=== PATIENT | female | born 1980 | race African-American/Black ===

== ENCOUNTER 2020-08-30 15:46 | Outpatient (CLI) | payer OTHER, SELFPAY ==
--- NOTE | ~2020-08-30 | MM_ITS ---
EXAMINATION: MM screening ariel BI w jose HISTORY: Screening TECHNIQUE: Craniocaudal and mediolateral oblique 3-D tomosynthesis images were obtained and synthetic 2-D images were generated. CAD analysis was submitted and interpreted. COMPARISON: No prior mammogram is available for comparison at this institution. BREAST PARENCHYMAL COMPOSITION: There are scattered areas of fibroglandular density. FINDINGS: There is no evidence of suspicious mass, calcification, or architectural distortion to sugg est malignancy in either breast. There has been no suspicious interval change. IMPRESSION: 1. No mammographic evidence of malignancy. 2. Recommend routine screening mammography in one year. BI-RADS Category 1: Negative Reviewed, dictated and finalized at location A. TABLE PICKER
== END 2020-08-30 15:47 | disposition home or self-care (01) ==
LOC: ANHIMG 15:50
PROVIDERS: PCP Physician Assistant; Visit Provider Physician Assistant
DX: Z12.31 Encounter for screening mammogram for malignant neoplasm of breast (principal)
CPT/HCPCS: 77063; 77067

== ENCOUNTER 2022-01-09 10:21 | Outpatient (CLI) | payer OTHER, SELFPAY ==
[2022-01-09 10:51] LABS: Hematocrit 41.5 % (37.0-47.0); Mean Corpuscular HGB Conc 31.3 g/dl (32-36); Mean Corpuscular Hemoglobin 28.6 pg (26-34); Mean Corpuscular Volume 91.4 fl (80-100); Mean Platelet Volume 10.4 fl (7.4-10.4); Platelet Count Result 261 k/mm3 (150-375); Red Blood Count 4.54 M/mm3 (4.2-5.4); Red Cell Distribution Width 12.2 % (11.5-14.5); White Blood Count 3.6 K/mm3 (4.5-10.0)
[2022-01-09 11:08] LABS: Alanine Aminotransferase 15 U/L (4-35); Albumin Level 4.4 g/dL (3.5-5.1); Alkaline Phosphatase 90 U/L (38-126); Anion Gap 4 mmol/L (8-16); Aspartate Amino Transferase 27 U/L (14-36); Bilirubin,Total 0.4 mg/dL (0.2-1.3); Blood Urea Nitrogen 16 mg/dL (7-17); Calcium 9.1 mg/dL (8.4-10.2); Carbon Dioxide 28 mmol/L (22-30); Chloride 110 mmol/L (98-107); Cholesterol 259 mg/dL (0-200); Estimated Glomerular Filt Rate > 60; Glucose 91 mg/dL (65-110); HDL Direct 50 mg/dL; Potassium 4.1 mmol/L (3.4-5.0); Sodium 142 mmol/L (137-145); Triglycerides 144 mg/dL (<150)
[2022-01-09 11:19] LABS: LDL Cholesterol Direct 111 mg/dL
[2022-01-09 11:39] LABS: Thyroid Stimulating Hormone 0.273 uIU/mL (0.465-4.680)
[2022-01-09 12:14] LABS: Folic Acid 17.8 ng/mL (2.76->20)
== END 2022-01-09 10:22 | disposition home or self-care (01) ==
LOC: ANHLAB 10:22
PROVIDERS: PCP Physician Assistant; Visit Provider Physician Assistant
DX: Z00.00 Encounter for general adult medical examination without abnormal findings (principal)
CPT/HCPCS: 36415; 80053; 80061; 82607; 82746; 84443; 85027

== ENCOUNTER 2022-04-10 11:37 | Outpatient (CLI) | payer OTHER, SELFPAY ==
--- NOTE | ~2022-04-10 | XR_ITS ---
EXAM: XR finger 1st LT min 2V, XR hand LT min 3V DATE: 04/10/2022 11:57 (accession [id number]), 04/10/2022 11:56 (accession [id number]) HISTORY: INJURY PAIN AT [facility] . COMPARISON: None available. FINDINGS: Normal mineralization. No fracture or dislocation. No lytic or blastic lesion. Mild degene rative changes in the fingers. No erosion or periosteal change. Soft tissues within normal limits. IMPRESSION: No acute osseous finding in the left thumb or left handr. Reviewed, dictated and finalized at location K. IMPRESSION: No acute osseous finding in the left thumb or left handr.
== END 2022-04-10 11:38 | disposition home or self-care (01) ==
LOC: ANHIMG 11:39
PROVIDERS: PCP Physician Assistant; Visit Provider Physician Assistant
DX: M79.645 Pain in left finger(s) (principal); M79.642 Pain in left hand
CPT/HCPCS: 73130; 73140

== ENCOUNTER 2022-12-09 13:24 | Outpatient (CLI) | payer OTHER, SELFPAY ==
--- NOTE | ~2022-12-09 | MR_ITS ---
MRI of the lumbar spine Clinical History: Radiculopathy Technique: Axial T2-weighted images, and sagittal T1-weighted, T2-weighted, and T2 fat-sat images wer e acquired. Findings: There is no fracture or subluxation of the lumbar spine. Vertebral bodies maintain normal h eight and alignment. There are reactive marrow signal changes about the L4-L5 disc space due to under lying degenerative disc disease. At L1-L2, L2-L3, and L3-L4, there is no disc bulge or herniation. There are mild facet joint degenera tive changes at these levels. No spinal canal stenosis or neural foraminal narrowing at these levels. At L4-L5, there is advanced degenerative disc narrowing with diffuse disc bulge and mild facet arthro nicola. There is right lateral recess stenosis with severe right neural foraminal narrowing. There is mild left neural foraminal narrowing. At L5-S1, there is no disc bulge or herniation. No spinal canal stenosis or definite neural foraminal narrowing. Paravertebral soft tissues are unremarkable. Impression: Moderate to advanced degenerative spondylitic changes at L4-L5, with right lateral recess stenosis an d severe right neural foraminal narrowing. Additional minimal degenerative changes, as above. Reviewed, dictated and finalized at location . Impression: Moderate to advanced degenerative spondylitic changes at L4-L5, with right late ral recess stenosis and severe right neural foraminal narrowing. Additional minimal degenerative changes, as above.
== END 2022-12-09 13:25 | disposition home or self-care (01) ==
PROVIDERS: PCP Physician Assistant; Visit Provider Physical Medicine & Rehabilitation
DX: M47.26 Other spondylosis with radiculopathy, lumbar region (principal)
CPT/HCPCS: 72148

== ENCOUNTER 2023-05-20 15:12 | Outpatient (CLI) | payer OTHER, SELFPAY ==
--- NOTE | ~2023-05-20 | XR_ITS ---
XR chest 2V DATE: 05/20/2023 15:38 INDICATION: Cough TECHNIQUE: PA and lateral views COMPARISON: None FINDINGS: Mild cardiomegaly. No hilar or mediastinal enlargement. No pulmonary infiltrate or consolid ation, pleural effusion or pulmonary vascular congestion or pneumothorax. Included skeletal structures are unremarkable other than degenerative spurring of the thoracic spine. IMPRESSION: Mild cardiomegaly Reviewed, dictated and finalized at location L. IMPRESSION: Mild cardiomegaly
== END 2023-05-20 15:13 | disposition home or self-care (01) ==
PROVIDERS: PCP Physician Assistant; Visit Provider Physician Assistant
DX: R05.8 Other specified cough (principal); I51.7 Cardiomegaly
CPT/HCPCS: 71046

== ENCOUNTER 2024-03-02 12:19 | Outpatient (CLI) | payer OTHER, SELFPAY ==
--- NOTE | ~2024-03-02 | XR_ITS ---
XR sacroiliac joints min 3V Ordering provider: Carmela Castillo MD History: . Sacroiliitis,LT WORSE, RADIATES INTO LEGS . Comparison: None. FINDINGS: BONES: No acute fracture or dislocation. JOINTS: The bilateral sacroiliac joint spaces appear well maintained. No bony fusion of the sacroilia c joints or bony erosions. SOFT TISSUES: Unremarkable. Degenerative changes of the spine with attempt of lumbarization of S1 with pseudoarthrosis on the rig ht side. Bilateral hip osteoarthritic change. IMPRESSION: NO ACUTE OSSEOUS ABNORMALITY. NORMAL SACROILIAC JOINTS. Reviewed, dictated and finalized at location A.
== END 2024-03-02 12:20 | disposition home or self-care (01) ==
PROVIDERS: PCP Physician Assistant; Visit Provider Physical Medicine & Rehabilitation Pain Medicine
DX: M46.1 Sacroiliitis, not elsewhere classified (principal)
CPT/HCPCS: 72202

== ENCOUNTER 2024-06-02 08:08 | Outpatient (CLI) | payer OTHER, SELFPAY ==
[2024-06-02 08:51] LABS: Basophils Percent Auto 0.5 % (0.2-1.2); Eosinophils Absolute Auto 0.1 K/mm3 (0-0.3); Eosinophils Percent Auto 2.1 % (0-4.4); Hematocrit 41.3 % (37.0-47.0); Hemoglobin 12.8 g/dL (12.0-15.0); Immature Granulocyte Absolute 0.01 K/mm3 (0.00-0.031); Immature Granulocyte Percent A 0.3 % (0-0.5); Lymphocytes Absolute Auto 1.92 K/mm3 (0.9-3.2); Lymphocytes Percent Auto 50.1 % (18.3-44.2); Mean Corpuscular Volume 90.4 fl (80-100); Mean Platelet Volume 9.8 fl (7.4-10.4); Monocytes Absolute Auto 0.3 K/mm3 (0.1-0.6); Monocytes Percent Auto 8.1 % (2.6-8.5); Neutrophils Absolute Auto 1.5 K/mm3 (1.3-6.7); Neutrophils Percent Auto 38.9 % (45.5-73.1); Platelet Count Result 274 k/mm3 (150-375); Red Blood Count 4.57 M/mm3 (4.2-5.4); Red Cell Distribution Width 12.8 % (11.5-14.5); White Blood Count 3.8 K/mm3 (4.5-10.0)
[2024-06-02 09:44] LABS: HIV 1/2 Ab P24 Ag Result Negative (Negative)
[2024-06-02 10:18] LABS: Chlamydia trachomatis NOT DETECTED (NOT DETECTE); Neisseria gonorrhoeae PCR NOT DETECTED (NOT DETECTE)
[2024-06-02 11:09] LABS: Hepatitis C Virus Antibody Negative (Negative)
[2024-06-02 18:14] LABS: Rapid Plasma Reagin Non-Reactive (NonReactive)
== END 2024-06-02 08:09 | disposition home or self-care (01) ==
LOC: ANHLAB 08:11
PROVIDERS: PCP Physician Assistant; Visit Provider Nurse Practitioner
DX: Z11.3 Encounter for screening for infections with a predominantly sexual mode of transmission (principal); Z00.00 Encounter for general adult medical examination without abnormal findings
CPT/HCPCS: 36415; 85025; 86592; 86695; 86696; 86703; 86803; 87491; 87591; G0432

== ENCOUNTER 2024-06-15 12:47 | Outpatient (CLI) | payer OTHER, SELFPAY ==
--- NOTE | ~2024-06-15 | CT_ITS ---
EXAMINATION: CT sinus wo con DATE: 06/15/2024 14:45 INDICATION: Sinusitis TECHNIQUE: Computed tomography (CT) of the paranasal sinuses was performed without intravenous contra st. The dose-length product was 370.23 mGy-cm. Automated exposure control and iterative reconstructio n technique were employed. COMPARISON: No prior studies for comparison. FINDINGS: No significant mucosal thickening. No air-fluid levels. No mucoperiosteal reaction. Mastoid s are pneumatized. No significant nasal septal deviation. Ostiomeatal units are patent. Mild enlargem ent of left cervical lymph nodes, likely reactive. IMPRESSION: 1. No significant sinus disease. Reviewed, dictated and finalized at location B.
--- NOTE | ~2024-06-15 | MMUS_ITS ---
EXAMINATION: MM diagnostic ariel BI w jose, US breast RT limited HISTORY: Palpable right breast lump TECHNIQUE: Additional 3-D tomosynthesis images of the breasts were performed and synthetic 2-D images were generated. CAD analysis was submitted and interpreted. High resolution Limited right breast ult rasound was performed. COMPARISON: 08/30/2020 BREAST PARENCHYMAL COMPOSITION: Not dense: There are scattered areas of fibroglandular density. FINDINGS: MAMMOGRAPHIC FINDINGS: There are no suspicious masses, calcifications or architectural distortion in either breast to sugges t malignancy. ULTRASOUND: Limited right breast ultrasound: Normal heterogeneous echotexture without focal solid or cystic mass. IMPRESSION: 1. No evidence for malignancy in either breast. 2. Routine yearly screening mammogram and regular clinical breast examination are recommended. BI-RADS Category 1: Negative Reviewed, dictated and finalized at location B. IMPRESSION: 1. No evidence for malignancy in either breast. 2. Routine yearly screening mammogram and regular clinical breast examination a re recommended. BI-RADS Category 1: Negative
== END 2024-06-15 12:48 | disposition home or self-care (01) ==
LOC: ANHIMG 12:48
PROVIDERS: PCP Physician Assistant; Visit Provider Nurse Practitioner
DX: J32.9 Chronic sinusitis, unspecified (principal); N63.0 Unspecified lump in unspecified breast
CPT/HCPCS: 70486; 76642; 77062; 77066; G0279

== ENCOUNTER 2025-05-13 13:49 | Outpatient (CLI) | payer OTHER, SELFPAY ==
--- NOTE | ~2025-05-13 | MR_ITS ---
MR breast BI wo/w con 05/14/2025 10:30 CDT INDICATION: Mastodynia TECHNIQUE: MRI of the breasts perform using standard protocol pre-and post IV contrast with the following sequences: Axial T2 STIR, axial T1, axial vibrant T1 with fat suppression precontrast and multiphasic postcontrast. 20 cc MultiHance administered intravenously COMPARISON: Comparison to multiple prior mammogram and right breast ultrasound studies sequentially, with oldest reviewed study dated 08/30/2020. FINDINGS: There are no abnormalities on the precontrast sequences. There is marked background parenchymal enhancement. No enhancing lesions following contrast administration. No areas of enhancement meeting threshold criteria on CAD analysis. No evidence of signal abnormalities in the axillary or internal mammary node distributions. LEFT BREAST: No signal abnormalities on precontrast sequences. There is marked background parenchymal enhancement. No enhancing lesions following contrast administration. No areas of enhancement meeting threshold criteria on CAD analysis. No evidence of signal abnormalities in the axillary or internal mammary node distributions.] IMPRESSION: 1: Right breast: Negative. No evidence of malignancy. BI-RADS category 1. Recommend annual mammography follow-up. 2: Left breast: Negative. No evidence of malignancy. BI-RADS category 1. Recommend annual mammography follow-up. Follow-up MRI may be useful for supplementing mammographic evaluation as clinically indicated. Reviewed, dictated and finalized at location O. IMPRESSION: 1: Right breast: Negative. No evidence of malignancy. BI-RADS category 1. Recommend annual mammography follow-up. 2: Left breast: Negative. No evidence of malignancy. BI-RADS category 1. Re commend annual mammography follow-up. Follow-up MRI may be useful for supplementing mammographic evaluation as clinic ally indicated.
--- OUTSIDE RECORDS SUMMARY | 2025-05-13 13:54 | XMS_ITS | Encounter Summary ---
Author Organization [facility] Healthcare Address [address] [place] [address] Care Team Providers Care Tray Server Name Role Phone Angelo Cantrell MD Primary Care Provider [phone] Karson Peck MD Unavailable Brandon Jimenez MD Primary Care Provider [phone] Reason for Visit * Reason Onset Date Comments results follow up 09/09/2018 Spoke with pt. to let her know that Dr. Peck wants a new MRI of the lumbar spine with Contrast. MRI ordered ansd faxed to Cathy for scheduling. Encounter Details Date Type Department Care Team (Late st Contact Info) Description 09/09/2018 Telephone [facility] at [place] [id number] [facility] 1st [place] [address] Karson Peck MD [address] [place] [id number] results follow up (Spoke with pt. to let her know that Dr. Peck wants a new MRI of the lumbar spine with Contrast. 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 Gender Identity Not on file Sexual Orientation Not on file documented as of this encounter Plan of Treatment Not on file documented as of this encounter Visit Diagnoses Diagnosis Radiculopathy, unspecified spinal region- Primary documented in this encounter Additional Health Concerns Infection Onset Date Last Indicated Resolved Time Exposure, COVID-19 Comment:Added automatically based on COVID19 lab answers indicating exposure risk 05/20/2023 05/20/2023 05/20/2023 10:49 PM CDT COVID: Suspected 05/20/2023 05/20/2023 05/20/2023 10:49 PM CDT COVID19 05/20/2023 05/20/2023 05/30/2023 3:05 AM CDT COVID: Recovered Comment:Added based on recent COVID infection. 05/30/2023 06/05/2023 08/28/2023 3:[address] documented as of this encounter Care Teams Tray Server Relationship Specialty Start Date End Date Angelo Cantrell MD [address] [place] [address] PCP - General Internal Medicine 05/15/18 05/19/23 Brandon Jimenez MD [address] [place] [address] PCP - General Internal Medicine 05/20/23 Karson Peck MD [address] [place] [address] Consulting Physician Pain Management 08/11/18 documented as of this encounter
--- OUTSIDE RECORDS SUMMARY | 2025-05-13 13:54 | XMS_ITS | Clinical Summary ---
Author Organization [facility] Address [address] [place] [address] Care Team Providers Care Coke Burner Name Role Phone Brandon Jimenez Primary Care Provider [phone] Source Comments [facility]non-owned Affiliates and Associated Physician Practices is amultiple site organization consisting of ambulatory clinics and hospital sitesin [place], [place], [place] and [place]. This disclosure is being madepursuant to the Care Everywhere program and may not contain all information available regarding this patient. Last updated 18.[facility] Allergies Active Allergy Reactions Criticality Noted Date Comments Hydrochlorothiazide W-Triamterene Shortness of Breath,Swelling High 10/20/2020 Albumin Swelling High 04/22/2023 Reports throat closes Sulfa Drugs Shortness of Breath,Itching,Narinder h High 10/20/2020 Medications * Be aware that medications may not be up to date on this document. Alwaysverify current medications with the patient. traZODone (DESYREL) 50 MG tablet Take 1 (one) tablet by mouth at bedtime 04/11/20 20 Active albuterol HFA (PROVENTIL;VENT CAESAR;PROAIR) 108 (90 Base) MCG/ACT inhaler every 4 hours as needed 03/10/20 20 Active alfuzosin CR 24hr (UROXATRAL) 10 MG tablet Take 1 (one) tablet by mouth 09/19/20 20 Active metoprolol succinate XL 24hr (TOPROL XL) 50 MG tablet Take 1 (one) tablet by mouth once daily 08/22/20 20 Active sertraline (ZOLOFT) 100 MG tablet Take 1 (one) tablet by mouth at bedtime 09/16/20 20 Active triamcinolone acetonide (KENALOG) 0.1 % cream Apply 1 Each to affected area once daily as needed 03/27/20 21 Active albuterol (PROVENTIL;VENT CAESAR) (2.5 MG/3ML) 0.083% nebulizer solution Inhale 2.5 (two and one-half) mg by mouth every 4 hours as needed 03/28/20 21 Active topiramate (TOPAMAX) 50 MG tablet Take 1 (one) tablet by mouth 2 times daily 11/13/19 22 Active cyclobenzaprine (Flexeril) 10 MG tablet Take 2 (two) tablets by mouth at bedtime 08/22/20 19 Active LORazepam (Ativan) 1 MG tablet TAKE 1 TO 2 TABLETS BY MOUTH EVERY DAY NEEDED Active acetaminophen (Tylenol) 500 MG tablet Take 2 (two) tablets by mouth every 8 hours as needed for Fever or Pain Maximum allowable Acetaminophen amount = 4 Grams (4000 mg) / 24 hours. 0 05/09/20 23 Active ibuprofen (Motrin) 800 MG tablet Take 1 (one) tablet by mouth every 6 hours as needed for Pain 30 tablet 05/09/20 23 Active omeprazole (PriLOSEC) 20 MG capsule Take 2 (two) capsules by mouth 2 times daily, before breakfast and supper for 60 days 240 capsule 05/09/20 23 Active semaglutide (Wegovy) 0.25 MG/0.5ML penIndications: Sleep apnea in adult,Class 3 severe obesity with serious comorbidity and body mass index (BMI) of 50.0 to 59.9 in adult, unspecified obesity type (HCC) Inject 0.25 (one-quarter) mg subcutaneously every 7 days (once a week) 3 mL 1 02/02/20 25 Active dulaglutide (Trulicity) 0.75 MG/0.5ML injectionIndica tions:Class 3 severe obesity with serious comorbidity and body mass index (BMI) of 50.0 to 59.9 in adult, unspecified obesity type (HCC),PCOS (polycystic ovarian syndrome) Inject 0.75 (three-quarters) mg subcutaneously every 7 days (once a week) 2 mL 05/11/20 25 Active Active Problems Problem Noted Date Diagnosed Date Benign essential hypertension 02/01/2025 Morbid obesity 03/30/2021 Kidney stone 03/11/2019 Overview (02/01/2025): Ca oxalate Encounters Date Type Department Care Team Description 05/10/2025 Orders Only [facility] Weight Management Services [address], [address] [place] [address] Hiral Mitchell, LCAC RADAR OPERATOR/NAVIGATOR-TOOL KEEPER 04/12/2025 Results Follow-Up [facility] [address], [address] [place], [place] [address] Hiral Mitchell, LCAC RADAR OPERATOR/NAVIGATOR-TOOL KEEPER from Last 3 Months Family History Medical History Relation Name Comments Cancer - Prostate Father Diabetes - Type 2 Mother Hypertension Mother Thyroid Disease Mother Relation Name Status Comments Father Alive Mother Alive Social History Tobacco Use Types Packs/Day Years Used Date Smoking Tobacco: Never Smokeless Tobacco: Never Tobacco Cessation:Counseling Given: Not Answered Alcohol Use Standard Drinks/Week Comments Not Currently 1 (1 standard drink = 0.6 oz pur e alcohol) yearly Comments No Sex and Gender Information Value Date Recorded Sex Assigned at Female 03/22/2025 10:40 AM CDT 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 Gender Identity Female 03/22/2025 10:40 AM CDT Sexual Orientation Straight 03/22/2025 10 :40 AM CDT Last Filed Vital Signs Vital Sign Reading Time Taken Comments Blood Pressure 146/91 02/01/2025 1:23 PM CDT Pulse 72 02/01/2025 1:23 PM CDT Temperature 36.6 C (97.9 F) 07/02/2023 1:06 PM CDT Respiratory Rate 16 05/09/2023 1:18 PM CDT Oxygen Saturation 95% 07/02/2023 1:06 PM CDT Inhaled Oxygen Concentration - - Weight 168 kg (370 lb 6.4 oz) 02/01/2025 1:23 PM CDT Height 177.8 cm (5' 10) 02/01/2025 1:23 PM CDT Body Mass Index 53.15 02/01/2025 1:23 PM CDT Plan of Treatment Upcoming Encounters Date Type Department Care Team (Late st Contact Info) Description 06/06/2025 8:40 AM CDT Office Visit [facility] Weight Management Services [address], [address] [place] [address] Hiral Mitchell, LCAC RADAR OPERATOR/NAVIGATOR-TOOL KEEPER [address] [place] [address] Health Maintenance Due Date Last Done Comments COLOGUARD (AGES 45-75) - COLON CA SCREENING 1979 COLON MONITORING 1979 COLONOSCOPY - COLON CA SCREENING 1979 CT COLONOGRAPHY - COLON CA SCREENING 1979 Colorectal Cancer Screening 1979 FIT - COLON CA SCREENING 1979 FLEX SIG - COLON CA SCREENING 1979 LIPID TESTING 1979 HIV SCREENING 1994 HEPATITIS C SCREENING 01/30/1997 DTAP/TDAP/TD VACCINES (1 - Tdap) 1998 HEPATITIS B VACCINE (1 of 3 - 19+ 3-dose series) 1998 MAMMOGRAM 04/28/2020 04/28/2018, 0803/2018, 01/01/2017, Additional history exists COVID-19 VACCINE ( season) 2024 DEPRESSION SCREENING 09/22/2024 INFLUENZA VACCINE (#1) 2025 SCREENING FOR DIABETES 04/07/2028 , 05/20/2023, 05/20/2023, Additional history exists ZOSTER VACCINE (1 of 2) 2029 HIB VACCINE Aged Out No longer eligi ble based on patient's age to complete this topic HPV VACCINE Aged Out No longer eligi ble based on patient's age to complete this topic MENINGOCOCCAL (Group B) VACCINE SHARED DECISION-MAKING Aged Out No longer eligible based on patient's age to complete this topic MENINGOCOCCAL GROUPS A/C/Y/W VACCINE Aged Out No longer eligible based on patient's age to complete this topic PNEUMOCOCCAL VACCINE Aged Out No long er eligible based on patient's age to complete this topic Procedures Procedure Name Priority Date/Time Associated Diagnosis Comments HEMOGLOBIN A1C Routine 04/07/2025 10:00 AM CDT Class 3 severe obesity with serious comorbidity and body mass index (BMI) of 50.0 to 59.9 in adult, unspecified obesity type (HCC) from Last 3 Months Results * HEMOGLOBIN A1C (HgbA1C) (04/07/2025 10:00 AM CDT) Hemoglobin A1c 5.6 4.8 - 5.6 % [facility] ACCOUNT BILL Comment: Prediabetes: 5.7 - 6.4 Diabetes: >6.4 Glycemic control for adults with diabetes: <7.0 Blood BLOOD SPECIMEN / Unknown 04/07/2025 10:00 AM CDT 04/07/2025 Narrative [facility] ACCOUNT BILL - 04/08/2025 6:09 AM CDT Performed at: 01 - [address] [id number] Video Technician: Chema Peter PhD, Phone: [phone] Hiral Mitchell APRN-TOOL KEEPER LAB - CHEMISTRY ORDERABLE S Final Result Performing Organization Address City/State/[facility] Co de Phone Number [facility] ACCOUNT BILL [address] [place] [address] from Last 3 Months Insurance [facility] [employer] [place] [address] [place] [address] Advance Directives * Full Code (Latest Code Status on File) Date Activated Date Inactivated Comments 03/30/2021 4:06 PM 03/31/2021 7:50 PM Care Teams Coke Burner Relationship Specialty Start Date End Date Brandon Jimenez DO [address] [address] PCP - General Internal Medicine 03/15/21
--- OUTSIDE RECORDS SUMMARY | 2025-05-13 13:54 | XMS_ITS | Encounter Summary ---
Author Organization [facility] Healthcare Address [address] [place] [address] Care Team Providers Care Protection Mgr Name Role Phone Angelo Cantrell MD Primary Care Provider [phone] Karson Peck MD Unavailable Brandon Jimenez MD Primary Care Provider [phone] Encounter Details Date Type Department Care Team (Late st Contact Info) Description 08/26/2019 Telephone [facility] [address] [facility] 1st [place] [address] Ange Duran RN Social History Tobacco Use Types Packs/Day Years Used Date Smoking Tobacco: Never Smokeless Tobacco: Never Comments No Sex and Gender Information Value Date Recorded Sex Assigned at Not on file 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 [address] [place] [address] PCP - General Internal Medicine 05/15/18 05/19/23 Brandon Jimenez MD [address] [facility] [address] [place] [address] PCP - General Internal Medicine 05/20/23 Karson Peck MD [address] [facility] [address] [place] [address] Consulting Physician Pain Management 08/11/18 documented as of this encounter
--- OUTSIDE RECORDS SUMMARY | 2025-05-13 13:54 | XMS_ITS | Encounter Summary ---
Author Organization [facility] Healthcare Address [address] [place] [address] Care Team Providers Care Land Examiner Name Role Phone Angelo Cantrell MD Primary Care Provider [phone] Karson Peck MD Unavailable Brandon Jimenez MD Primary Care Provider [phone] Reason for Visit * Reason Onset Date Comments Pre-Surgical Call 12/14/2018 Encounter Details Date Type Department Care Team (Late st Contact Info) Description 12/14/2018 Telephone [facility] at [facility] [address] [facility] [address]st [place] [address] Amelia Sierra RN Pre-Surgical Call Social History Tobacco Use Types Packs/Day Years Used Date Smoking Tobacco: Never Smokeless Tobacco: Never Comments No Sex and Gender Information Value Date Recorded Sex Assigned at Not on file 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
--- OUTSIDE RECORDS SUMMARY | 2025-05-13 13:54 | XMS_ITS | Encounter Summary ---
Author Organization [facility] Healthcare Address [address] [place] [address] Care Team Providers Care Audio Production Instructor Name Role Phone Angelo Cantrell MD Primary Care Provider Karson Peck MD Unavailable Brandon Jimenez MD Primary Care Provider [phone] Encounter Details Date Type Department Care Team (Late st Contact Info) Description 09/07/2018 Telephone [facility] [address] [facility] [address] [place] [address] Karson Peck MD [address] [place] [address] Social History Tobacco Use Types Packs/Day Years Used Date Smoking Tobacco: Never Smokeless Tobacco: Never Comments No Sex and Gender Information Value Date Recorded Sex Assigned at Not on file 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
--- OUTSIDE RECORDS SUMMARY | 2025-05-13 13:54 | XMS_ITS | Clinical Summary ---
Author Organization [facility] Healthcare Address [address] [place] [address] Care Team Providers Care Country Printer Apprentice Name Role Phone Karson Peck MD Unavailable Brandon Jimenez MD Primary Care Provider [phone] Allergies Active Allergy Reactions Criticality Noted Date Comments Triamterene-Hydrochlorothi azid Shortness of breath,Swelling High 08/11/2018 Sulfa (Sulfonamide Antibiotics) Rash Medium 08/11/2018 Medications LORazepam (ATIVAN) 1 mg tabletIndications:In somnia Take 1 tablet (1 mg total) by mouth nightly 0 07/07/20 18 Active metoprolol XL (TOPROL-XL) 50 mg 24 hr tabletIndications:hy pertension Take 1 tablet (50 mg total) by mouth every morning Active traZODone (DESYREL) 50 mg tabletIndications:in somnia associated with depression Take 1 tablet (50 mg total) by mouth nightly Active sertraline (ZOLOFT) 100 mg tabletIndications:An xiety with Depression Take 1 tablet (100 mg total) by mouth nightly Active phentermine 15 mg capsule Take 1 capsule (15 mg total) by mouth daily before breakfast 04/23/20 Active cyclobenzaprine (FLEXERIL) 10 mg tablet Take 2 tablets (20 mg total) by mouth nightly 180 tablet 3 08/13/20 22 Active omeprazole (PriLOSEC) 20 mg capsuleIndications:S ymptomatic Gastroesophageal Reflux Disease Take 1 capsule (20 mg total) by mouth every morning 01/20/20 23 Active traMADoL (ULTRAM) 50 mg tabletIndications:Pa in Take 1 tablet (50 mg total) by mouth 2 (two) times a day 01/23/20 23 Active triamcinolone (KENALOG) 0.1 % cream Apply 1 g topically 2 (two) times a day as needed for rash or irritation 02/23/20 23 Active multivitamin with iron tabletIndications:Vi tamin Deficiency Prevention Take 1 tablet by mouth every morning Active ELDERBERRY FRUIT ORALIndications:supp lement Take 3,000 mg by mouth every morning Active calcium carbonate-vitamin D3 600-125 mg-unit tabletIndications:Vi tamin D Deficiency Take 2 tablets by mouth every morning Active acetaminophen 500 mg capsuleIndications:P ain Take 2 capsules (1,000 mg total) by mouth every 6 (six) hours 04/25/20 23 Active docusate sodium (COLACE) 100 mg capsuleIndications:c onstipation Take 1 capsule (100 mg total) by mouth 2 (two) times a day as needed for constipation 30 capsule 04/25/20 23 Active oxyBUTYnin XL (DITROPAN-XL) 10 mg 24 hr tablet Take 1 tablet (10 mg total) by mouth daily 30 tablet 11 05/15/20 23 Active benzonatate (TESSALON) 100 mg capsuleIndications:C ough Take 1 capsule (100 mg total) by mouth every 8 (eight) hours 21 capsule 05/21/20 23 Active albuterol HFA (PROVENTIL HFA,VENTOLIN HFA,PROAIR HFA) 90 mcg/actuation inhaler Inhale 2 puffs every 4 (four) hours as needed for wheezing 18 g 05/21/20 23 Active ibuprofen (ADVIL,MOTRIN) 800 mg tablet Take 1 tablet (800 mg total) by mouth 3 (three) times a day 21 tablet 05/21/20 23 Active topiramate (TOPAMAX) 50 mg tablet TAKE 1 TABLET TWICE A DAY (MUST HAVE OFFICE VISIT BEFORE FUTURE REFILLS) 180 tablet 1 08/05/20 23 Active Active Problems Problem Noted Date Diagnosed Date Staghorn calculus 03/21/2023 Depressive disorder, atypical 12/16/2018 Chronic pain disorder 08/11/2018 Lumbar radiculopathy 08/11/2018 Ilioinguinal neuralgia of left side 08/11/2018 Encounters Date Type Department Care Team Description 04/28/2025 Results Follow-Up [facility] at [address] [address] Karson Peck MD XR Spine Lumbar 2 or 3 Views 04/27/2025 10:54 AM CDT - 04/27/2025 11:59 PM CDT Hospital Encounter [facility] [address] [place] [id number] Lumbar radiculopathy Discharge Disposition: Discharge to home or self care 04/27/2025 10:04 AM CDT - 04/27/2025 11:59 PM CDT Hospital Encounter [facility] at [address] [address] Karson Peck MD Lumbar radiculopathy (Primary Dx); Spondylosis of lumbar region without myelopathy or radiculopathy; Chronic bilateral low back pain with left-sided sciatica; Sacroiliitis Discharge Disposition: Discharge to home or self care from Last 3 Months Surgical History Surgery Date Site/Laterality Comments HYSTERECTOMY LAPAROSCOPIC OVARIAN CYSTECTOMY Medical History Medical History Date Comments Wears glasses Hypertension Mitral valve prolapse Asthma Heart burn Muscle pain Numbness and tingling Loss of coordination Low back pain Sleep apnea Family History Medical History Relation Name Comments Anxiety disorder Father Cancer Father Depression Father Cancer Mother Diabetes Mother Heart disease Mother Hypertension Mother Stroke Mother Anxiety disorder Sister Relation Name Status Comments Father Mother Sister Social History Tobacco Use Types Packs/Day Years Used Date Smoking Tobacco: Never Passive Smoke Exposure: Never Smokeless Tobacco: Never Tobacco Cessation:Counseling Given: Not Answered AUDIT-C Answer Date Recorded Q1: How often do you have a drink containing alc ohol? Monthly or less 04/10/2023 Q2: How many drinks containi ng alcohol do you have on a typical day when you are drinking? 1 or 2 04/10/2023 Q3: How often do you have si x or more drinks on one occasion? Never 04/10/2023 Personal Safety Answer Date Recorded Have you ever been in or are you currently in a harmful physical or emotional relationship or is someone making you feel afraid or unsafe? 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 Gender Identity Not on file Sexual Orientation Not on file Obstetrics History Last Filed Vital Signs Vital Sign Reading Time Taken Comments Blood Pressure 146/85 04/27/2025 10:19 AM CDT Pulse 81 04/27/2025 10:19 AM CDT Temperature 36.1 C (96.9 F) 04/27/2025 10:19 AM CDT Respiratory Rate 16 04/27/2025 10:19 AM CDT Oxygen Saturation 97% 04/27/2025 10:19 AM CDT Inhaled Oxygen Concentration - - Weight 145.2 kg (320 lb) 04/24/2023 12:55 PM CDT Height 177.8 cm (5' 10) 04/24/2023 12:55 PM CDT Body Mass Index 45.92 04/24/2023 12:55 PM CDT Plan of Treatment Health Maintenance Due Date Last Done Comments Colon Cancer Screening-Colonoscopy 1979 Depression Screening 1979 Hepatitis C Screening 1979 DTaP/Tdap/Td Vaccine (1 - Tdap) 1990 Hepatitis B Screening 1997 Regular Well Visit/Exam 18-64 1997 Pneumococcal vaccine <65 (1 of 2 - PCV) 1998 Breast Cancer Screening-Mammogram 04/28/2019 04/28/2018, 01/01/2017, 12/15/2015, Additional history exists Covid-19 Vaccine (2 - 2023- season) 2024 05/12/2021 Influenza Vaccine (#1) 2025 HPV Vaccines Aged Out No longer eligi ble based on patient's age to complete this topic Goals Goal Patient Goal Type Associated Problems Recent Progress Patient-Stated? Author CCM Chronic Pain Care Plan Chronic Care Management On track(2024 10:20 AM CDT) No Bradley aguilera, Meryl Thurman, RN Note: Problem: Chronic Pain Goals: 1. Minimize further functional decline 2. Maximize quality of life 3. Control pain Strategies: - Activity/exercise program recommendation - Conservative stepwise pain medicine strategy with multi-disciplinary approach - Recommend healthy lifestyle strategies and compensatory methods as needed Reduce the likelihood of falling Lifestyle On track(2024 10:20 AM CDT) Meryl Abbasi RN Note: Below are four things you can do to prevent falls: Begin an exercise program to improve your leg strength & balance Ask your doctor or pharmacist to review your medicines Get annual eye check-ups & update your eyeglasses Make your home safer by: Removing clutter & tripping hazards Putting railings on all stairs & adding grab bars in the bathroom Having good lighting, especially on stairs Contact your local community or [facility] for information on exercise, fall prevention programs, or options for improving home safety. Medical Devices Explanted Type Area Weekday Babysitter Device Identifier Shelf Expiration Date Model / Serial / Lot [employer] [id number] 6fr 26cm 145cm Radiopaque Positioner Filiform Flexible Tip - Sn/A - [id number] Implanted:Qty: 1 on 04/24/2023 by Paulina Hernandez MD at [facility] Explanted:Qty: 1 on 05/05/2023 by Paulina Hernandez MD Stent Right: Ureter [employer] [id number] 02/21/2026 [id number] / N/A / [id number] Description:6x26 Procedures Procedure Name Priority Date/Time Associated Diagnosis Comments XR SPINE LUMBAR 2 OR 3 VIEWS Schedule Routine, Read Routine (OP Routine) 04/27/2025 11:14 AM CDT Lumbar radiculopathy SCREENING MAMMOGRAM BILATERAL W STEPHEN Routine 04/28/2018 9:27 AM CDT from Last 3 Months or Most Recently Relevant to Health Maintenance Results * XR Spine Lumbar 2 or 3 Views (04/27/2025 11:14 AM CDT) Anatomical Region Laterality Modality Spine N/A Computed Radiogr aphy 04/27/2025 12:0 4 PM CDT Impressions 04/27/2025 12:04 PM CDT FINDINGS AND IMPRESSION: Frontal, lateral and coned lateral views of the lumbar spine are submitted as 3 images. 5 nonrib-bearing lumbar vertebral bodies. Small T12 rudimentary ribs. Partially sacralized L5. Subtle thoracolumbar dextrocurvature apex at L2, unchanged. No fracture or compression deformity. Normal alignment. Preserved lumbar lordotic curvature. Left L3-4 and bilateral L4-5 facet arthropathy is similar to the previous study. Moderate L4-5 degenerative intervertebral disc space narrowing and posterior endplate osteophytes causing moderate spinal canal stenosis. Suspect severe neural foraminal stenosis at this level. Sacroiliac joints are normal as visualized. Electronically signed by: Zak Conn MD [facility] 04/27/2025 12:04 PM CDT EXAMINATION: XR SPINE LUMBAR 2 OR 3 VIEWS HISTORY: Lumbar radiculopathy, symptoms persist with > 6 wks treatment DATE: 04/27/2025 at 11:07 AM COMPARISON:Lumbar spine MRI 09/25/2018, CT KUB Stone 04/25/2023 Procedure Note Zak Conn MD PhD - 04/27/2025 EXAMINATION: XR SPINE LUMBAR 2 OR 3 VIEWS HISTORY: Lumbar radiculopathy, symptoms persist with > 6 wks treatment DATE: 04/27/2025 at 11:07 AM COMPARISON:Lumbar spine MRI 09/25/2018, CT KUB Stone 04/25/2023 IMPRESSION: FINDINGS AND IMPRESSION: Frontal, lateral and coned lateral views of the lumbar spine are submitted as 3 images. 5 nonrib-bearing lumbar vertebral bodies. Small T12 rudimentary ribs. Partially sacralized L5. Subtle thoracolumbar dextrocurvature apex at L2, unchanged. No fracture or compression deformity. Normal alignment. Preserved lumbar lordotic curvature. Left L3-4 and bilateral L4-5 facet arthropathy is similar to the previous study. Moderate L4-5 degenerative intervertebral disc space narrowing and posterior endplate osteophytes causing moderate spinal canal stenosis. Suspect severe neural foraminal stenosis at this level. Sacroiliac joints are normal as visualized. Electronically signed by: Zak Conn MD Karson Peck MD IMG XR PROCEDURES Final Result * Screening Mammogram Bilateral W Stephen (04/28/2018 9:27 AM CDT) Anatomical Region Laterality Modality Breast Bilateral Mammography 04/28/2018 9:27 AM CDT Impressions 04/28/2018 10:21 AM CDT BI-RAD 1 NEGATIVE There is no mammographic evidence of malignancy. A 1 year screening mammogram is recommended. The patient has been or will be contacted. The patient will be entered into a reminder system with a target due date of 1 year for her next screening exam. Electronically signed by: Trenton burgos/didier:04/28/2018 10:20:48 Switch Operator: Earlene Westbrook, [facility] letter sent: Normal Exam Reading location: [facility] BI-RADS: 1 Negative [EOD] Narrative 04/28/2018 10:21 AM CDT - MG BILATERAL DIGITAL SCREENING MAMMOGRAM 3D/2D WITH MEDIOLATERAL OBLIQUE CRANIOCAUDAL: 04/28/2018 The study was acquired using full field digital technology and interpreted from soft copy. 2D digital mammographic views, as well as 3D digital tomosynthesis were performed in the CC and MLO projections. CLINICAL: Routine mammogram. Patient denies any problems today. Grandmother with breast cancer. No personal history of breast cancer. COMPARISONS: Comparison is made to exams dated: 01/01/2017 mammogram, 12/15/2015 mammogram, 07/12/2013 mammogram - [facility], and 11/26/2008 mammogram - [facility]. BREAST TISSUE: The tissue of both breasts is almost entirely fatty. FINDINGS: No significant masses, calcifications, or other findings are seen in either breast. There has been no significant interval change. Procedure Note Provider, MD Cheri - 02/06/2021 - MG BILATERAL DIGITAL SCREENING MAMMOGRAM 3D/2D WITH MEDIOLATERAL OBLIQUE CRANIOCAUDAL: 04/28/2018 The study was acquired using full field digital technology and interpretedfrom soft copy. 2D digital mammographic views, as well as 3D digital tomosynthesis were performed in the CC and MLO projections. CLINICAL: Routine mammogram. Patient denies any problems today.Grandmother with breast cancer. No personal history of breast cancer. COMPARISONS: Comparison is made to exams dated: 01/01/2017 mammogram,12/15/2015 mammogram, 07/12/2013 mammogram - [facility], and 11/26/2008 mammogram - [facility]. BREAST TISSUE: The tissue of both breasts is almost entirely fatty. FINDINGS: No significant masses, calcifications, or other findings areseen in either breast. There has been no significant interval change. IMPRESSION: BI-RAD 1 NEGATIVE There is no mammographic evidence of malignancy. A 1 year screeningmammogram is recommended. The patient has been or will be contacted. The patient will be entered into a reminder system with a target due dateof 1 year for her next screening exam. Electronically signed by: Trenton burgos/didier:04/28/2018 10:20:48 Switch Operator: Earlene Westbrook, [facility] letter sent: Normal Exam Reading location: [facility] BI-RADS: 1 Negative [EOD] Tata Corral DO IMG MAMMO PROCEDURES F inal Result from Last 3 Months or Most Recently Relevant to Health Maintenance Insurance [facility] CHOICE PLUS [facility] CHOICE PLUS CHOICE PLUS [facility] CHOICE PLUS Advance Directives For more information, please contact: [phone] Documents on File Type Date Recorded Patient Dietetic Technician Expl anation ADVANCE DIRECTIVE 02/17/2013 12:00 AM SHARON R OF NETWORK ANNOUNCER FINANCIAL/MEDICAL * Full Code (Latest Code Status on File) Date Activated Date Inactivated Comments 04/24/2023 12:26 PM 04/25/2023 5:51 PM Care Teams Country Printer Apprentice Relationship Specialty Start Date End Date Brandon Jimenez MD [address] [facility] [address] [place] [id number] PCP - General Internal Medicine 05/20/23 Karson Peck MD Consulting Physician Pain Management 08/11/18
--- OUTSIDE RECORDS SUMMARY | 2025-05-13 13:54 | XMS_ITS | Encounter Summary ---
Author Organization [facility] Healthcare Address [address] [place] [address] Care Team Providers Care Metrology Engineer Name Role Phone Angelo Cantrell MD Primary Care Provider [phone] Karson Peck MD Unavailable Brandon Jimenez MD Primary Care Provider [phone] Encounter Details Date Type Department Care Team (Late st Contact Info) Description 09/23/2018 Telephone [facility] [address] [facility] [address] [place] [address] Karson Peck MD [address] [place] [address] Social History Tobacco Use Types Packs/Day Years Used Date Smoking Tobacco: Never Smokeless Tobacco: Never Comments No Sex and Gender Information Value Date Recorded Sex Assigned at Not on file 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
--- OUTSIDE RECORDS SUMMARY | 2025-05-13 13:54 | XMS_ITS | Encounter Summary ---
Author Organization [facility] Healthcare Address [address] [place] [address] Care Team Providers Care Pretzel Packer Name Role Phone Karson Peck MD Unavailable Brandon Jimenez MD Primary Care Provider [phone] Encounter Details Date Type Department Care Team (Late st Contact Info) Description 04/28/2025 Results Follow-Up [facility] [address] [facility] 1st [place] [address] Karson Peck MD [facility] [place] [address] XR Spine Lumbar 2 or 3 Views Social History Tobacco Use Types Packs/Day Years Used Date Smoking Tobacco: Never Passive Smoke Exposure: Never Smokeless Tobacco: Never AUDIT-C Answer Date Recorded Q1: How often [...] on file Legal Sex Female 3:36 AM [place] Gender Identity Not on file Sexual Orientation Not on file documented as of this encounter Plan of Treatment Not on file documented as of this encounter Goals Goal Patient Goal Type Associated Problems Recent Progress Patient-Stated? Author CCM Chronic Pain Care Plan Chronic Care Management On track(2024 10:20 AM CDT) No Meyrl Nugent RN Note: Problem: Chronic Pain Goals: 1. Minimize further functional decline 2. Maximize quality of life 3. Control pain Strategies: - Activity/exercise program recommendation - Conservative stepwise pain medicine strategy with multi-disciplinary approach - Recommend healthy lifestyle strategies and compensatory methods as needed Reduce the likelihood of falling Lifestyle On track(2024 10:20 AM CDT) No Meryl Nugent RN Note: Below are four things you [...] on stairs Contact your local community or [facility] for information on exercise, fall prevention programs, or options for improving home safety. documented as of this encounter Visit Diagnoses Not on filedocumented in this encounter Care Teams Pretzel Packer Relationship Specialty Start Date End Date Brandon Jimenez MD [address] [place] [address] PCP - General Internal Medicine 05/20/23 Karson Peck MD Consulting Physician Pain Management 08/11/18 documented as of this encounter
--- OUTSIDE RECORDS SUMMARY | 2025-05-13 13:54 | XMS_ITS | Encounter Summary ---
Author Organization [facility] Address [address] [place] [address] Care Team Providers Care Command And Control Specialist Name Role Phone Brandon Jimenez DO Primary Care Provider [phone] Encounter Details Date Type Department Care Team (Late st Contact Info) Description 04/12/2025 Results Follow-Up [facility] [address] [place] [address] Hiral Mitchell, EMBEDDED FIRMWARE DEVELOPER-WIND OPERATIONS SUPERVISOR [address] [facility] [address] [place] [address] Social History Tobacco Use Types Packs/Day Years Used Date Smoking Tobacco: Never Smokeless Tobacco: Never Alcohol Use Standard Drinks/Week Comments Not Currently 1 (1 standard drink = 0.6 oz pur e alcohol) yearly Comments No Sex and Gender Information Value Date Recorded Sex Assigned at Female 03/22/2025 10:40 AM CDT Legal Sex Female 6:20 AM CARD CUTTER HELPER Gender Identity Female 03/22/2025 10:40 AM CDT Sexual Orientation Straight 03/22/2025 10 :40 AM CDT documented as of this encounter Functional Status * Is person deaf or have serious hearing difficulty? Answer Date of Assessment Author No 03/30/2021 4:28 PM CDT Lalito Cisneros, ALO * Is person blind or have serious difficulty seeing? Answer Date of Assessment Author No 03/30/2021 4:28 PM CDT Lalito Cisneros RN * Does person have serious difficulty walking/climbing stairs? Answer Date of Assessment Author Yes 03/30/2021 4:28 PM CDT Lalito Cisneros RN * Does person have difficulty dressing/bathing? Answer Date of Assessment Author No 03/30/2021 4:28 PM CDT Lalito Cisneros RN * Does person have difficulty doing errands alone? Answer Date of Assessment Author No 03/30/2021 4:28 PM CDT Lalito Cisneros RN documented as of this encounter Mental Status * Does person have difficulty concentrating/remembering/making decisions? Answer Entry Date Author No 03/30/2021 4:28 PM CDT Lalito Cisneros RN documented in this encounter Plan of Treatment Upcoming Encounters Date Type Department Care Team (Late st Contact Info) Description 06/06/2025 8:40 AM CDT Office Visit [facility] [address] [facility], [address] [place] [address] Hiral Mitchell, EMBEDDED FIRMWARE DEVELOPER-WIND OPERATIONS SUPERVISOR [address] [facility] [address] [place] [id number] documented as of this encounter Visit Diagnoses Not on filedocumented in this encounter Care Teams Command And Control Specialist Relationship Specialty Start Date End Date Brandon Jimenez DO [address] [address] [place] [address] PCP - General Internal Medicine 03/15/21 documented as of this encounter
== END 2025-05-13 13:50 | disposition home or self-care (01) ==
PROVIDERS: PCP Internal Medicine; Visit Provider Internal Medicine
DX: N64.4 Mastodynia (principal)
CPT/HCPCS: 77049; A9577; C8908